=== PATIENT | male | born 1970 | race Caucasian/White ===

== ENCOUNTER 2017-04-04 10:51 | Emergency (ER) | payer OTHER ==
[2017-04-04] MEDS ORDERED: IBUPROFEN 600 MG TABLET PO STA (12:26)
[2017-04-04] MEDS ORDERED: ACETAMINOPHEN 325 MG TABLET PO STA (12:26)
[2017-04-04] MEDS ORDERED: ACETAMINOPHEN 325 MG TABLET PO ONE (12:36)
[2017-04-04] MEDS ORDERED: IBUPROFEN 600 MG TABLET PO ONE (12:37)
--- NOTE | 2017-04-04 12:52 | ED Physician Documentation ---
PD HPI UPPER EXT INJURY - Stated complaint Stated Complaint: R SHOULDER INJURY - Chief complaint Chief Complaint: Ext Problem - History obtained from History obtained from: Patient - History of Present Illness Location: Right, Shoulder Type of injury: Other (he was lifting and turning a heavy box at work and felt a pop and pain in right shoulder. Hurts for lifting overhead most.) Where injury occurred: Work ([employer] Timing - onset: Today Timing - details: Abrupt onset, Still present Improved by: Rest Worsened by: Moving. No: Palpating Associated symptoms: No: Weakness, Numbness, Tingling, Swelling Similar symptoms before: Has not had sx before Recently seen: Not recently seen Review of Systems Constitutional: denies: Fever, Chills Neurologic: denies: Focal weakness, Numbness PD PAST MEDICAL HISTORY - Past Medical History Past Medical History: No Musculoskeletal: None - Past Surgical History Past Surgical History: No - Present Medications Home Medications: Ambulatory Orders Medication Instructions Recorded Confirmed Naproxen [Naprosyn] 500 mg PO BID #20 tablet 04/04/17 Tramadol HCl 50 mg PO Q6H PRN #20 tablet 04/04/17 - Allergies Allergies/Adverse Reactions: Allergies Allergy/AdvReac Type Severity Reaction Status Date / Time No Known Drug Allergies Allergy Verified 04/04/17 10:57 - Social History Does the pt smoke?: No Smoking Status: Never smoker Does the pt drink ETOH?: Yes Does the pt have substance abuse?: No - Immunizations Immunizations are current?: Yes - POLST Patient has POLST: No PD ED PE NORMAL - Vitals Vital signs reviewed: Yes - General General: Alert and oriented X 3, No acute distress, Well developed/nourished - Neck Neck: Supple, no meningeal sign, No bony TTP - Derm Derm: Normal color, Warm and dry - Extremities Extremities: Other (right shoulder with tenderness anteriorly but not at AC. ROm limited by pain. No noted laxity on passive ROM. Hurts with rotator cuff movements, james abduction. ) Results - Vitals Vitals: Vital Signs - 24 hr 04/04/17 04/04/17 10:55 12:56 Temperature 36.8 C Heart Rate 88 73 Respiratory 16 20 Rate Blood Pressure 141/90 H 135/85 H O2 Saturation 98 97 Oxygen O2 Source Room air - Rads (name of study) shoulder Radiology: Prelim report reviewed, EMP read contemporaneously (no acute) PD MEDICAL DECISION MAKING - ED course Complexity details: reviewed results (xray okay), considered differential ( seems likely rotator cuff injury, strain vs partial tear. ), d/w patient Departure - Departure Disposition: 01 Home, Self Care Clinical Impression: Rotator cuff (capsule) sprain Qualifiers: Encounter type: initial encounter Laterality: right Qualified Code(s): S43.421A - Sprain of right rotator cuff capsule, initial encounter Right shoulder strain Qualifiers: Encounter type: initial encounter Qualified Code(s): S46.911A - Strain of unspecified muscle, fascia and tendon at shoulder and upper arm level, right arm , initial encounter Condition: Stable Record reviewed to determine appropriate education?: Yes Instructions: ED Sprain Shoulder Follow-Up: Nir Cooney MD [Provider Admit Priv/Credential] - Prescriptions: Naproxen [Naprosyn] 500 mg PO BID #20 tablet Tramadol HCl 50 mg PO Q6H PRN #20 tablet PRN Reason: Pain Comments: I think you have strained some of the muscles of the shoulder, which might include some of the rotator cuff. You can use a sling for the shoulder very limitedly for comfort but be sure to have good range of motion periodically through the day which can be small circles or using her other arm. You do not want to have the sling on consistently so that it does not get stiffen. We have discussed this. Otherwise some ice to the shoulder periodically. Naproxen twice daily for the next 10 days with food. Add Tylenol or tramadol if needed for pain. Follow-up with orthopedics and call today for an appointment for about a week from now. Limited lifting push pull and overhead reaching with the shoulder for a week. Forms: Activity restrictions Discharge Date/Time: 04/04/17 12:56
--- NOTE | 2017-04-04 13:00 | XRAY Preliminary Report ---
Exam: XR Shoulder 3 View RT IMPRESSION: Normal shoulder radiography. [facility] SITE ID: [id number]
--- NOTE | 2017-04-04 13:03 | XRAY Report ---
EXAM: RIGHT SHOULDER RADIOGRAPHY EXAM DATE: 04/04/2017 12:45 PM. CLINICAL HISTORY: Shoulder pain and pop with lifting at work today. COMPARISON: None. TECHNIQUE: 3 views. FINDINGS: Bones: Normal. No fracture or bone lesion. Joints: The glenohumeral and acromioclavicular joints are normal. Soft tissues: The visualized hemithorax is unremarkable. No soft tissue swelling. IMPRESSION: Normal shoulder radiography. [facility] Referring Provider Line: [phone] SITE ID: [id number]
[2017-04-04 13:06] VITALS: BP 135/85
== END 2017-04-04 12:56 | disposition home or self-care (01) ==
LOC: ED 10:51
DX: S43.421A Sprain of right rotator cuff capsule, initial encounter (principal); S46.811A Strain of other muscles, fascia and tendons at shoulder and upper arm level, right arm, initial encounter; X50.0XXA Overexertion from strenuous movement or load, initial encounter; Y92.89 Other specified places as the place of occurrence of the external cause; Y99.0 Civilian activity done for income or pay
CPT/HCPCS: 73030; 99283; A9270

== ENCOUNTER 2017-08-21 16:15 | Outpatient (CLI) | payer OTHER ==
--- NOTE | 2017-08-22 11:03 | MRI Report ---
EXAM: RIGHT SHOULDER MRI WITHOUT CONTRAST EXAM DATE: 08/21/2017 05:42 PM. CLINICAL HISTORY: Right shoulder pain 4 months. COMPARISON: 04/04/2017. TECHNIQUE: Multiplanar, multisequence T1-weighted and fluid-sensitive sequences of the shoulder witho ut contrast. Other: None. FINDINGS: Acromioclavicular Region: The acromion is type II. There is moderate acromioclavicular joint osteoart hritis. There is a trace of fluid in the subacromial bursa. Glenohumeral Region: No subluxation. No effusion or loose bodies. The articular cartilage is unremark able. Bone Marrow: There is a low T1, high T2 signal lesion with a lobulated contour and a narrow zone of t ransition in the head of the humerus, suggestive of an enchondroma. Labrum: The labrum is unremarkable on this nonarthrographic study. Musculature/Rotator Cuff: There is mildly increased T2 signal in the posterior fibers of supraspinatu s consistent with tendinosis. There is a 4 mm by 8 mm musculotendinous junction, humeral surface tear involving less than 50% of tendon thickness. Unremarkable. There is high-grade partial thickness tea ring of the deep and superficial fibers of subscapularis at its insertion, with near-complete rupture of the tendon. Biceps Tendon: There is a full-thickness tear of the long head of biceps tendon in the bicipital groo ve. A small number of retracted fibers are visible in the distal groove. Other: The subcutaneous tissues are unremarkable. IMPRESSION: 1. Moderate acromioclavicular joint osteoarthritis. 2. 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 3. Tendinosis and low-grade partial-thickness tearing of supraspinatus. 4. High-grade partial-thickness tear of subscapularis at its insertion. Complete rupture of the long head of biceps tendon with distal retraction. [facility] MUSCULOSKELETAL RADIOLOGY SECTION Referring Provider Line: [phone] SITE ID: [id number]
== END 2017-08-21 16:16 | disposition home or self-care (01) ==
LOC: DI 16:15
PROVIDERS: ATTEND Orthopaedic Surgery
DX: M19.011 Primary osteoarthritis, right shoulder (principal); D16.01 Benign neoplasm of scapula and long bones of right upper limb; M75.101 Unspecified rotator cuff tear or rupture of right shoulder, not specified as traumatic; S46.111D Strain of muscle, fascia and tendon of long head of biceps, right arm, subsequent encounter

== ENCOUNTER 2018-02-24 05:46 | Day surgery (SDC) | payer OTHER ==
[2018-02-24] MEDS ORDERED: ceFAZolin 2 GM/50 ML 2 GM/50 ML BAG IV ONE (06:36)
[2018-02-24] MEDS ORDERED: LACTATED RINGERS 1,000 ML IV ONE ×2 (06:43→09:10)
--- NOTE | 2018-02-24 06:54 | ANESTHESIA ---
Pre-Anesthesia VS, & Labs - Diagnosis Right rotator cuff tear, Right longhead of biceps tendon tear, Right AC joint impingement - Procedure Right Shoulder Arthroscopy, Right rotator cuff repair with biceps tenodesis, subacromial decompression Vital Signs: Temp Pulse Resp BP Pulse Ox 36.8 C 16 131/84 H 100 02/24/18 06:32 02/24/18 06:32 02/24/18 06:32 02/24/18 06:32 Height 5 ft 9 in Weight (kg) 86.2 kg Body Mass Index 27.3 - NPO >8 hours Home Medications and Allergies Home Medications: Ambulatory Orders Medication Instructions Recorded Confirmed No Known Home Medications [No 02/23/18 02/24/18 Known Home Medications] Allergies/Adverse Reactions: Allergies Allergy/AdvReac Type Severity Reaction Status Date / Time No Known Drug Allergies Allergy Verified 02/24/18 06:31 Anes History & Medical History - Anesthetic History Anesthesia Complications: reports: No previous complications Family history of Anesthesia Complications: Denies - Airway/Dental Mouth Opening: Greater than 4 Fingerbreadths Neck Mobility: Normal Mallampati classification: III Thyromental Distance: greater than 6 cm - Medical History Cardiovascular: reports: None Pulmonary: reports: Sleep apnea, CPAP use Gastrointestinal: reports: None Urinary: reports: None Musculoskeletal: reports: None Endocrine/Autoimmune: reports: None Skin: reports: None Smoking Status: Never smoker Exam General: Alert Respiratory: Lungs clear Cardiovascular: Regular rate Plan Anesthesia Type: General, Interscalene Block Consent for Procedure(s) Verified and Reviewed: Yes Code Status: Attempt Resuscitation ASA classification: 2-Mild systemic disease Is this case an emergency?: No
[2018-02-24] MEDS ORDERED: BUPIVACAINE 0.25% PF 30 ML VIAL ONE (07:29)
[2018-02-24] MEDS ORDERED: BUPIVACAINE 0.5% PF 30 ML VIAL ONE (07:29)
[2018-02-24] MEDS ORDERED: LIDOCAINE MPF 1%-EPI 1:200000 30 ML VIAL ONE (07:30)
[2018-02-24] MEDS ORDERED: PROPOFOL 200 MG/20 ML VIAL IVP ONE (08:44)
[2018-02-24] MEDS ORDERED: ROPIVACAINE 0.5% PF 20 ML AMPULE EP ONE (08:44)
[2018-02-24] MEDS ORDERED: KETOROLAC 30 MG/ML VIAL IVP ONE (08:44)
[2018-02-24] MEDS ORDERED: MIDAZOLAM 2 MG/2 ML VIAL IVP ONE (08:44)
[2018-02-24] MEDS ORDERED: fentaNYL 100 MCG/2 ML VIAL IVP ONE (08:44)
[2018-02-24] MEDS ORDERED: ROCURONIUM 50 MG/5 ML VIAL IVP ONE (08:44)
[2018-02-24] MEDS ORDERED: LIDOCAINE-MPF 2% 5 ML VIAL IM ONE (08:44)
[2018-02-24] MEDS ORDERED: ONDANSETRON 4 MG/2 ML VIAL IVP ONE (08:44)
[2018-02-24] MEDS ORDERED: DEXAMETHASONE 4 MG/ML VIAL IVP ONE (08:44)
[2018-02-24] MEDS ORDERED: oxyCOD/ACETAMIN 5 MG/325 MG TABLET PO ONE (10:07)
[2018-02-24 10:44] VITALS: BP 132/80
--- NOTE | 2018-02-24 12:46 | OPERATIVE REPORT ---
DATE OF SERVICE: 02/24/2018 Physician: Zoila Kim MD PREOPERATIVE DIAGNOSIS: Right shoulder impingement syndrome, possible rotator cuff tear and biceps t ear. POSTOPERATIVE DIAGNOSIS: Right shoulder impingement syndrome and chronic biceps tear. PROCEDURE PERFORMED: Right shoulder arthroscopy with subacromial decompression. SURGEON: Zoila Kim MD ANESTHESIA: General with interscalene block by Nubia Avelar CRNA. INDICATIONS FOR SURGERY: The patient is a 47-year-old male with chronic right shoulder pain, with ac gene and pain with overhead use. He has failed nonoperative treatment and desires surgical treatment of his shoulder, with the plan being arthroscopy of the shoulder, subacromial decompression, possibl e biceps tenodesis, and possible rotator cuff tear. FINDINGS AT SURGERY: Under anesthesia, the patient had a normal shoulder exam. He had full passive and active motion and no instability, and minimal sulcus displacement. Arthroscopic surgery, he had a tendency towards bleeding, but the inflammatory tissue was more involved in the subacromial space t asher in the shoulder joint itself. The shoulder was devoid of a biceps tendon, and the bicipital groo ve was empty. There was a small fraying on the underside of the rotator cuff, supraspinatus of no co nsequence. The cuff being otherwise entirely intact, glenohumeral ligaments intact labrum intact, an d the surface of the glenoid showing no significant articular wear. The subacromial space showed ext sinan tendency to bleeding with intact and inflamed bursal tissues, type 2 acromion, prominent CA liga ment, and intact bursal side rotator cuff. DESCRIPTION OF OPERATIVE PROCEDURE: The patient was taken to the operating room and was given a gene ral endotracheal anesthetic after having received an interscalene block. He was positioned on the OR table supine, and then placed up into a beach chair position, with the shoulder was sterilely preppe d and draped for adequate exposure for shoulder arthroscopy. The surgical timeout was held, after which portal sites were made, and the scope introduced into the glenohumeral joint from the posterior acromial portal. Very careful examination was made of the shou lder joint, especially tracing the pathway of the biceps tendon course, with the biceps not visible, and the bicipital groove empty. The structures were all documented to be intact in the shoulder. The scope was then withdrawn and placed in the subacromial, where there was dense bursal thickening a nd scarring, and a tendency towards bleeding. In this site, the radiofrequency wand was used to coag ulate tissues and to remove bursal tissue with the shaver and the wand, gaining a view of the CA liga ment and the underside of the acromion, where the bur was used to plane down to a type 1 acromion and the CA ligament was excised. The shoulder blade area was flushed and a good view was obtained at th e end, to examine the distal aspect of the clavicle at the AC joint, and there was no abnormality see n in the capsule, and this was left alone. The bursal side of rotator cuff was inspected and was int act. The scope was withdrawn. Portals were closed then with interrupted 3-0 nylon suture and sterile dres sings were applied. The patient was then taken to the recovery room in stable condition, where a sli ng was applied. ESTIMATED BLOOD LOSS: Minimal. COMPLICATIONS: None. COUNTS: Sponge and needle counts correct. TD: 02/24/2018 11:02
== END 2018-02-24 05:47 | disposition home or self-care (01) ==
LOC: SDS 05:46
PROVIDERS: ATTEND Orthopaedic Surgery
PROC: 0RBJ4ZZ Excision of Right Shoulder Joint, Percutaneous Endoscopic Approach (ICD-10-PCS; principal; 2018-02-24 07:30)
DX: M75.41 Impingement syndrome of right shoulder (principal); S46.211A Strain of muscle, fascia and tendon of other parts of biceps, right arm, initial encounter; G47.30 Sleep apnea, unspecified
CPT/HCPCS: 29822; A9270; J0690; J7120

== ENCOUNTER 2018-06-01 14:56 | Outpatient (CLI) | payer OTHER | END 2018-06-01 14:57 | disposition home or self-care (01) | LOC: SC 14:56 | PROVIDERS: ATTEND Internal Medicine Pulmonary Disease | DX: G47.33 Obstructive sleep apnea (adult) (pediatric) (principal) | CPT/HCPCS: 99203; 99212 ==

== ENCOUNTER 2019-07-05 11:22 | Outpatient (CLI) | payer OTHER ==
--- NOTE | 2019-07-05 12:14 | SLEEP CARE CONSULTATION ---
Information from patient questionnaire entered by Nubia Mccain. I have reviewed and concur with the information entered by Nubia Mccain. This document represents the service I personally performed and the decisions made by me, Neptali Newby MD, [facility]. History of Present Illness Previous diagnosis: Severe, Obstructive Sleep Apnea-Hypopnea Syndrome AHI: 43.4 Reason for follow up: annual (last seen 2018) Equipment type: CPAP Equipment obtained from: [employer] Mask style: Full face HPI additional information: HPI: Mr. Cruz returned today for annual follow up of nasal CPAP therapy. He was diagnosed to have severe obstructive sleep apnea-hypopnea syndrome. The patient wears a full face mask. He reports using the device part of the time. The compliance report shows usage in 137 nights out of the past 180 nights, averaging 3.5 hours a night. He reports not putting the mask back on after going to the bathroom in the middle of the night. He also thinks that it is too small. He complained of no particular problem with the device such as soreness on the face, dry nose, epistaxis, nasal congestion or headache. He thinks that the pressure of 5- 8 cmH2O is comfortable. If he uses the CPAP all night, he notices improvement in his sleep quality, and that he wakes up feeling fresher in the morning and more awake/alert during the day. His notices no snore at all. The average residual AHI is 2.3; and air leak, 14.6 L/min. The 90th percentile pressure is 7.5 cmH2O. CPAP Compliance Data - Data Reviewed with Patient Average duration of nightly device use: 3.5 Compliance rate %: 31 (180 days)(43 for last 30) Current pressure setting (cmH2O): 5-8 Humidity settin Average residual AHI: 2.3 Subjective Patient concerns: reports: mask discomfort (believe i need next size up), air blowing in eyes, dry mouth, nose, throat (not often) Initial [place] Sleepiness Scale score: 8 Current [place] Sleepiness Scale score: 8 Allergies and Home Medications Drug allergies reviewed: Yes Home medication list reviewed: Yes Review of Systems Review of systems same as previous: Yes Physical Exam Weight: 190 lb Impression and Plan IMPRESSION: 1. Obstructive Sleep Apnea-Hypopnea Syndrome, severe, with the patient doing fairly well on nasal CPAP therapy. He has [id number] compliance but significant clinical improvement. The current pressure appears effective and comfortable. Overall, he is very satisfied with treatment and plans to continue with it long-term. No adjustment is necessary today. PLAN: 1. Continue with autoCPAP set at 5 - 8 cmH2O. 2. Try to lose some weight 3. Try [employer]Med AirTouch F-20 full face mask and Respironics DreamWear full face mask. Prescription faxed to [facility]. 4. Return in one year for follow up or earlier if there is any problem with the treatment. I spent 100% of this 20 minute visit face to face with the patient with greater than 50% of this was spent time counseling the patient and coordination of care.
== END 2019-07-05 11:23 | disposition home or self-care (01) ==
LOC: SC 11:22
PROVIDERS: ATTEND Internal Medicine Pulmonary Disease
DX: G47.33 Obstructive sleep apnea (adult) (pediatric) (principal)
CPT/HCPCS: 99212; 99213

== ENCOUNTER 2020-07-20 14:23 | Outpatient (CLI) | payer OTHER ==
--- NOTE | 2020-07-19 15:02 | SLEEP CARE CONSULTATION ---
Information from patient questionnaire entered by Nubia Mccain. I have reviewed and concur with the information entered by Nubia Mccain. This document represents the service I personally performed and the decisions made by me, Joleen Golden, RN, MSN, [employer]. History of Present Illness Service Date and Time: 07/19/2020 1430 Previous diagnosis: Severe, Obstructive Sleep Apnea-Hypopnea Syndrome AHI: 43.4 (in 2017) Reason for follow up: annual (last seen 06/2019) Equipment type: CPAP Equipment obtained from: [employer] Mask style: Full face Prior sleep studies: Yes Year and Where: 2017 [facility] Sleep Lab Type of Sleep Study: Polysomnography CPAP Compliance Data - Data Reviewed with Patient Average duration of nightly device use: 1 hr 50 min Compliance rate %: 7 (180 days) Current pressure setting (cmH2O): 5-8 Humidity settin Average residual AHI: 4.7 Subjective Initial [place] Sleepiness Scale score: 8 Physical Exam Height: 5 ft 9 in Impression and Plan 1. Patient scheduled for a telehealth video visit per [facility]. The connection was erratic despite recalling twice. He does not have internet connection at this time only phone data available. He requested to reschedule for an in office visit and I notified my office staff. Visit Type: Telehealth Video Video Type: [facility] Patient Location: Home Location of Provider: Home Patient agrees and consents to this telehealth visit type: Yes Patient agrees to have their insurance billed: Yes Time Spent with Patient (minutes): 5-10 minutes all spent in trying to establish good connection Provider Statement: I spent 100% of the Telehealth Video Call with the patient with greater than 50% spent counseling the patient and coordination of care.
--- NOTE | 2020-07-20 14:56 | SLEEP CARE CONSULTATION ---
Information from patient questionnaire entered by Frederick Lopez. I have reviewed and concur with the information entered by Frederick Lopez. This document represents the service I personally performed and the decisions made by , Leeanne Wooten ARNP. History of Present Illness Service Date and Time: 07/20/2020 1423 Previous diagnosis: Severe, Obstructive Sleep Apnea-Hypopnea Syndrome AHI: 43.4 (in 2017) Reason for follow up: annual (Last seen 06/2019) Equipment type: CPAP Equipment obtained from: [employer] (getting supplies as needed) Mask style: Full face Backup mask available: Yes (other mask) Last cushion change: 2 weeks Prior sleep studies: Yes Year and Where: 2017 [facility] Sleep Lab Type of Sleep Study: Polysomnography HPI additional information: BARRETT SÁNCHEZ was diagnosed to have severe, AHI 43.4, obstructive sleep apnea- hypopnea syndrome and returned today for CPAP therapy annual follow-up. CPAP Compliance Data - Data Reviewed with Patient Average duration of nightly device use: 1 h 50 min Compliance rate %: 7 Current pressure setting (cmH2O): 5-8 Average residual AHI: 4.7 Central apnea: 0.0 Obstructive apnea: 0.7 Subjective Missed days of use due to: reports: mask issues (had some problems using other mask, no comfort), illness (severe heartburn), other (going to sleep late) Patient concerns: denies: aerophagia, mask discomfort, air blowing in eyes, mask leak noise, condensation in mask/hose, nasal congestion, dry mouth, nose, throat, epistaxis, other Observed to snore while using device: No Current pressure setting perceived as: comfortable On therapy, patient: reports: sleeping better, awakening more refreshed, being more awake and alert during the day, more rested overall. denies: drowsiness while driving Initial [place] Sleepiness Scale score: 8 (in 2018) Current [place] Sleepiness Scale score: 9 Allergies and Home Medications Drug allergies reviewed: Yes (NKDA) Home medication list reviewed: Yes (new med for heartburn) Review of Systems Review of systems same as previous: Yes (NKDA) Physical Exam Heart Rate: 78 O2 Saturation: 98 Height: 5 ft 9 in Weight: 199 lb Body Mass Index: 29.3 BMI Classification: Overweight Impression and Plan 1. Obstructive Sleep Apnea-Hypopnea Syndrome, severe, with poor treatment compliance and good apnea control. On CPAP therapy, the patient has better sleep quality and is more rested overall. He has had some issues with severe heartburn for which he was recently started on medication. He feels the heartburn is improving and he has been trying to wear his CPAP mask more. His current compliance is at 7%. I reviewed with his compliance needs for insurance purposes and he voiced understanding. I will have him follow up here in 2 months to recheck compliance. He has a tube that may be defective and I advised him to call his DME supplier to get a replacement tube. He voiced understanding. Patient's apnea severity and rationale for treatment to reduce apnea, improve sleep quality and reduce cardiovascular and cerebrovascular events was reviewed. * Continue auto CPAP pressure at 5-8 cmH2O * Notify me if snoring with mask or feeling that the pressure is too much or too little * Attempt to lose weight * Call this office if any problems using CPAP * Return for follow up in 2 months, or sooner if concerns arise Counseling Topics: Spare mask Visit Type: In Office Time Spent with Patient (minutes): 18 Provider Statement: I spent 100% of the Face to Face Visit with the patient with greater than 50% spent counseling the patient and coordination of care.
== END 2020-07-20 14:24 | disposition home or self-care (01) ==
LOC: SC 14:23
PROVIDERS: ATTEND Nurse Practitioner Family
DX: G47.33 Obstructive sleep apnea (adult) (pediatric) (principal); E66.3 Overweight; Z68.29 Body mass index [BMI] 29.0-29.9, adult
CPT/HCPCS: 99212; 99213

== ENCOUNTER 2020-09-20 12:41 | Outpatient (CLI) | payer OTHER ==
--- NOTE | 2020-09-20 13:22 | SLEEP CARE CONSULTATION ---
Information from patient questionnaire entered by Nubia Mccain. I have reviewed and concur with the information entered by Nubia Mccain. This document represents the service I personally performed and the decisions made by , Leeanne Wooten ARNP. History of Present Illness Service Date and Time: 09/20/2020 1241 Previous diagnosis: Severe, Obstructive Sleep Apnea-Hypopnea Syndrome AHI: 43.4 (in 2017) Reason for follow up: other (2 month) Equipment type: CPAP Equipment obtained from: [employer] (getting supplies) Mask style: Full face Mask brand: Respironics Backup mask available: Yes (other mask) Last cushion change: 1 month Prior sleep studies: Yes Year and Where: [address] [place] [address] Sleep Lab Type of Sleep Study: Polysomnography HPI additional information: BARRETT SÁNCHEZ was diagnosed to have severe, AHI 43.4, obstructive sleep apnea- hypopnea syndrome and returned today for CPAP therapy two month compliance follow-up. CPAP Compliance Data - Data Reviewed with Patient Average duration of nightly device use: 4 hr 13 min Compliance rate %: 50 (60 days) Current pressure setting (cmH2O): 5-8 Humidity settin Average residual AHI: 4.3 Central apnea: 0.1 Obstructive apnea: 0.5 Subjective Missed days of use due to: reports: mask issues, other (colonoscopy, heartburn) Patient concerns: reports: mask discomfort (due to over tightening of headgear; now doing better), mask leak noise (placed a piece of tape over tube that fits into top of headgear). denies: aerophagia, air blowing in eyes, condensation in mask/hose, nasal congestion, dry mouth, nose, throat, epistaxis, other Observed to snore while using device: No Current pressure setting perceived as: comfortable On therapy, patient: reports: sleeping better, awakening more refreshed, being more awake and alert during the day, more rested overall. denies: drowsiness while driving Initial [place] Sleepiness Scale score: 8 (in 2018) Current [place] Sleepiness Scale score: 5 Allergies and Home Medications Drug allergies reviewed: Yes (NKDA) Home medication list reviewed: Yes (no new medications) Review of Systems Review of systems same as previous: No (colonoscopy, heartburn) Physical Exam Heart Rate: 81 O2 Saturation: 96 Height: 5 ft 9 in Weight: 199 lb Body Mass Index: 29.3 BMI Classification: Overweight Impression and Plan 1. Obstructive Sleep Apnea-Hypopnea Syndrome, severe, with poor treatment compliance and fair apnea control. On CPAP therapy, the patient has better sleep quality and is more rested overall. He had some issues with the mask making leaking noises and fit issues. He put some tape around on part going into the top of headgear and this has resolved the loud leaking noises. He was over- tightening the headgear and then it was too loose causing issues with keeping the mask on. He has figured out how to keep the mask snug but not too tight and feels it is less uncomfortable. He has been able to use the CPAP more with the mask fitting better but I reinforced with patient that he needs to increase days that are 4 hours or more of use. He voiced understanding. He feels the pressure is comfortable at current setting and his AHI is under 5. We will keep his pressure at current setting for now. I advised patient that increasing time in the mask will give him better benefit of the treatment. He voiced understanding and agreement with plan. Patient's apnea severity and rationale for treatment to reduce apnea, improve sleep quality and reduce cardiovascular and cerebrovascula r events was reviewed. * Continue auto CPAP pressure at 5-8 cmH2O * Notify me if snoring with mask or feeling that the pressure is too much or too little * Attempt to lose weight * Call this office if any problems using CPAP * Return for follow up in 1 month to recheck compliance, or sooner if concerns arise Counseling Topics: Spare mask, Weight loss health impact Visit Type: In Office Time Spent with Patient (minutes): 24 Provider Statement: I spent 100% of the Face to Face Visit with the patient with greater than 50% spent counseling the patient and coordination of care.
== END 2020-09-20 12:42 | disposition home or self-care (01) ==
LOC: SC 12:41
PROVIDERS: ATTEND Nurse Practitioner Family
DX: G47.33 Obstructive sleep apnea (adult) (pediatric) (principal); E66.3 Overweight; Z68.29 Body mass index [BMI] 29.0-29.9, adult
CPT/HCPCS: 99212; 99213

== ENCOUNTER 2020-10-20 12:46 | Outpatient (CLI) | payer OTHER ==
--- NOTE | 2020-10-20 13:37 | SLEEP CARE CONSULTATION ---
Information from patient questionnaire entered by Frederick Lopez. I have reviewed and concur with the information entered by Frederick Lpoez. This document represents the service I personally performed and the decisions made by me, Leeanne Wooten ARNP. History of Present Illness Service Date and Time: 10/20/2020 1246 Previous diagnosis: Severe, Obstructive Sleep Apnea-Hypopnea Syndrome AHI: 43.4 (in 2017) Reason for follow up: one month Equipment type: CPAP Equipment obtained from: [employer] (getting supplies as needed) Mask style: Full face Backup mask available: Yes (old mask) Last cushion change: last week Prior sleep studies: Yes Year and Where: 2017 [facility] Sleep Lab Type of Sleep Study: Polysomnography HPI additional information: BARRETT SÁNCHEZ was diagnosed to have severe, AHI 43.4, obstructive sleep apnea- hypopnea syndrome and returned today for CPAP therapy one month follow-up. CPAP Compliance Data - Data Reviewed with Patient Average duration of nightly device use: 6 h 6 min Compliance rate %: 80 Current pressure setting (cmH2O): 5-8 Average residual AHI: 6.9 Subjective Patient concerns: reports: mask leak noise (only a little). denies: aerophagia, mask discomfort, air blowing in eyes, condensation in mask/hose, nasal congestion, dry mouth, nose, throat, epistaxis, other Observed to snore while using device: No Current pressure setting perceived as: comfortable On therapy, patient: reports: sleeping better, awakening more refreshed, being more awake and alert during the day, more rested overall. denies: drowsiness while driving Initial [place] Sleepiness Scale score: 8 (in 2018) Current [place] Sleepiness Scale score: 5 Allergies and Home Medications Home medication list reviewed: Yes (no changes) Review of Systems Review of systems same as previous: Yes (no changes) Physical Exam Heart Rate: 69 O2 Saturation: 98 Height: 5 ft 9 in Weight: 197 lb Body Mass Index: 29.0 BMI Classification: Overweight Impression and Plan 1. Obstructive Sleep Apnea-Hypopnea Syndrome, severe, with good treatment compli ance and fair apnea control with mild elevation of residual AHI. On CPAP therapy, the patient has better sleep quality and is more rested overall. He needs to replace his hose because it has a hole in it and was leaking. He has it taped. He was advised to contact his DME for another hose. He voiced understanding. He has a few mask leaks but nothing significant. He likes the current pressure setting and has significant improvement of his sleep apnea. His [place] initially was 8/24 and is 5/24 upon measurement today. I will not adjust his pressures today. Patient's apnea severity and rationale for treatment to reduce apnea, improve sleep quality and reduce cardiovascular and cerebrovascular events was reviewed. * Continue autoCPAP pressure at 5-8 cmH2O * Notify me if snoring with mask or feeling that the pressure is too much or too little * Attempt to lose weight * Call this office if any problems using CPAP * Return for follow up in 1 year, or sooner if concerns arise Counseling Topics: Spare mask, Weight loss health impact Visit Type: In Office Time Spent with Patient (minutes): 14 Provider Statement: I spent 100% of the Face to Face Visit with the patient with greater than 50% spent counseling the patient and coordination of care.
--- OUTSIDE RECORDS SUMMARY | 2020-10-25 01:57 | EXTERNAL MEDICAL SUMMARY RPT | Continuity of Care Document ---
:1970 Demographics Phone Unavailable Preferred Language Hungarian Marital Status Unknown Tenriism Affiliation Unknown Race Unknown Ethnic Group Unknown Author Organization [place] Address [address] [phone] Phone Care Team Providers Name Role Phone Brennan Unavailable Unavailable Procedures date description facility [id number] [facility] Vital Signs date measurement value source 20200914 BMI 29.3 kg/m2 20200914 BP_diastolic 74 mm[Hg] 20200914 BP_systolic 143 mm[Hg] 20200914 heart_rate 78 /min 20200914 height_metric 175.26 cm [id number] height_standard 69 in [id number] respiration_rate 20 /min 20200914 temperature_metric 37.28 C [id number] temperature_standard 99.1 F 20200914 weight_metric 90.26 kg 20200914 weight_standard 198.99 lb Social History date description facility [id number]
== END 2020-10-20 12:47 | disposition home or self-care (01) ==
LOC: SC 12:46
PROVIDERS: ATTEND Nurse Practitioner Family
DX: G47.33 Obstructive sleep apnea (adult) (pediatric) (principal); E66.3 Overweight; Z68.29 Body mass index [BMI] 29.0-29.9, adult
CPT/HCPCS: 99212

== ENCOUNTER 2021-12-18 08:00 | Outpatient (CLI) | payer OTHER ==
--- NOTE | 2021-12-19 09:00 | XRAY Report ---
PROCEDURE: Finger(s) RT INDICATIONS: R THUMB PX TECHNIQUE: AP hand, 2 views of the right first finger(s) acquired. COMPARISON: None FINDINGS: Bones: No fractures or dislocations. No suspicious bony lesions. Soft tissues: Soft tissue swelling along the dorsal aspect over the first IP joint without underlyi ng foreign body or calcifications. Minor dystrophic calcifications around the first metacarpal head. IMPRESSION: 1. Soft tissue swelling over the first IP joint without underlying fracture, calcification, or foreig n body. Reviewed by: Jeri Herrera MD on 12/19/2021 8:59 AM PDT Approved by: Jeri eHrrera MD on 12/19/2021 8:59 AM PDT Station ID: [id number]
== END 2021-12-18 23:59 | disposition home or self-care (01) ==
LOC: DI.N 08:00
PROVIDERS: ATTEND Registered Nurse
DX: M79.644 Pain in right finger(s) (principal); M79.9 Soft tissue disorder, unspecified

== ENCOUNTER 2021-12-19 12:42 | Outpatient (CLI) | payer OTHER ==
[2021-12-19 13:41] VITALS: BP 141/95
--- NOTE | 2021-12-19 13:41 | SLEEP CARE CONSULTATION ---
Information from patient questionnaire entered by Yoana Stovall MA. I have reviewed and concur with the information entered by Yoana Stovall MA. This document represents the service I personally performed and the decisions made by , Leeanne Wooten ARNP. History of Present Illness Service Date and Time: 12/19/2021 1242 Previous diagnosis: Severe, Obstructive Sleep Apnea-Hypopnea Syndrome AHI: 43.4 (in 2017) Reason for follow up: annual (LAST SEEN 10/20/20, [facility] 03/18/17 [facility] FEB , RESMED, ) Equipment type: CPAP Equipment obtained from: [employer] (getting supplies as needed) Mask style: Full face (hybrid) Backup mask available: Yes (old mask) Last cushion change: 1 month Prior sleep studies: Yes Year and Where: [address] [place] [address] Sleep Lab Type of Sleep Study: Polysomnography HPI additional information: BARRETT SÁNCHEZ was diagnosed to have severe, AHI 43.4, obstructive sleep apnea- hypopnea syndrome and returned today for CPAP therapy annual follow-up. Sleep Study - Results Type of Sleep Study: Polysomnography Prior sleep studies: Yes Year and Where: [address] [place] [address] Sleep Lab CPAP Compliance Data - Data Reviewed with Patient Average duration of nightly device use: 1 HOUR 49 MINUTES Compliance rate %: 7 (30 days; ) Current pressure setting (cmH2O): 5-8 Average residual AHI: 5.1 Central apnea: .0 Obstructive apnea: .0 Hypopnea: 1.7 Average large leak: 66.8 Subjective Missed days of use due to: reports: mask issues (air leaking and keeping him awake on top of headgear where hose connects to headgear), illness (hurt right thumb over weekend), other (HOSE HAS A HOLE) Patient concerns: reports: air blowing in eyes, mask leak noise, other (air loss in hose). denies: aerophagia, mask discomfort, condensation in mask/hose, nasal congestion, dry mouth, nose, throat, epistaxis Observed to snore while using device: Yes (a little bit) Current pressure setting perceived as: comfortable On therapy, patient: reports: sleeping better, awakening more refreshed, being more awake and alert during the day, more rested overall. denies: drowsiness while driving Initial [place] Sleepiness Scale score: 8 (in 2018) Current [place] Sleepiness Scale score: 7 (11/2021) Allergies and Home Medications Home medication list reviewed: Yes (antibiotics) Allergy and home medication list: Allergies No Known Drug Allergies Allergy (Verified 02/24/18 06:31) Review of Systems Review of systems same as previous: No (right thumb pain and swelling; no known injury) Physical Exam Vital signs obtained and entered by: DIANELYS MONTERO Blood Pressure: 141/95 (LEFT, RESP 20, PULSE 80, ) Cuff size: wrist Heart Rate: 86 O2 Saturation: 97 Height: 5 ft 9 in Weight: 195 lb Body Mass Index: 28.8 BMI Classification: Overweight Impression and Plan 1. Obstructive Sleep Apnea-Hypopnea Syndrome, severe, with poor treatment compliance and fair apnea control. On CPAP therapy, the patient has better sleep quality and is more rested overall. Patient has been having a lot of problems with being able to wear his mask due to the air leaking through the hose on the top of the headgear. He did replace the air hose once but the 1 he replaced it with is now leaking the same. I was able to find a spare ResMed air sense 10 heated hose to see if this will have less problems. The hose he has been using has been a regular unheated hose. Patient's apnea severity and rationale for treatment to reduce apnea, improve sleep quality and reduce cardiovascular and cerebrovascular events was reviewed. * Continue auto CPAP pressure at 5-8 cmH2O * Gave patient heated hose for his ResMed Airsense 10 to use * Notify me if snoring with mask or feeling that the pressure is too much or too little * Attempt to lose weight * Call this office if any problems using CPAP * Return for follow up in 1-2 months, or sooner if concerns arise Counseling Topics: Spare mask, Weight loss health impact Visit Type: In Office Time Spent with Patient (minutes): 24 Provider Statement: I spent 100% of the Face to Face Visit with the patient with greater than 50% spent counseling the patient and coordination of care.
== END 2021-12-19 12:43 | disposition home or self-care (01) ==
LOC: SC 12:42
PROVIDERS: ATTEND Nurse Practitioner Family
DX: G47.33 Obstructive sleep apnea (adult) (pediatric) (principal); E66.3 Overweight; Z68.28 Body mass index [BMI] 28.0-28.9, adult
CPT/HCPCS: 99212; 99213

== ENCOUNTER 2022-05-24 13:36 | Outpatient (CLI) | payer OTHER ==
--- NOTE | 2022-05-24 14:38 | XRAY Report ---
PROCEDURE: Knee 3 View LT INDICATIONS: L KNEE PX TECHNIQUE: 3 views of the left knee(s) were acquired. COMPARISON: None. FINDINGS: Bones: No fractures or dislocations. No suspicious bony lesions. Moderate medial compartment narro wing. No erosions or periarticular osteophytes. Soft tissues: Mild joint effusion. No suspicious soft tissue calcifications. IMPRESSION: Early arthritic change most notable in the medial compartment. Reviewed by: Clarissa Paz MD on 05/24/2022 2:36 PM PDT Approved by: Clarissa Paz MD on 05/24/2022 2:36 PM PDT Station ID: [id number]
== END 2022-05-24 13:37 | disposition home or self-care (01) ==
LOC: DI 13:36
PROVIDERS: ATTEND Registered Nurse
DX: M17.12 Unilateral primary osteoarthritis, left knee (principal)

== ENCOUNTER 2022-08-20 14:59 | Outpatient (CLI) | payer OTHER ==
[2022-08-20 15:33] VITALS: BP 126/78
--- NOTE | 2022-08-20 15:33 | SLEEP CARE CONSULTATION ---
Information from patient questionnaire entered by Marie Antunez. I have reviewed and concur with the information entered by Marie Antunez. This document represents the service I personally performed and the decisions made by me, Leeanne Wooten ARNP. History of Present Illness Service Date and Time: 08/20/2022 1459 Previous diagnosis: Severe, Obstructive Sleep Apnea-Hypopnea Syndrome AHI: 43.4 (in 2016) Reason for follow up: three month (F/U) Equipment type: CPAP (RESMED Airsense 10 s/u 02/2017; SD CARD NEEDED FOR DOWNLOAD AND CHANGES) Equipment obtained from: [employer] (getting supplies as needed) Mask style: Full face (hybrid) Mask brand: [employer] (Fidelina view) Backup mask available: Yes (old mask) Last cushion change: less than a month Prior sleep studies: Yes Year and Where: [facility] Sleep Lab Type of Sleep Study: Polysomnography HPI additional information: BARRETT SÁNCHEZ was diagnosed to have severe, AHI 43.4, obstructive sleep apnea- hypopnea syndrome and returned today for CPAP therapy three month with pressure change follow-up. Sleep Study - Results Type of Sleep Study: Polysomnography Prior sleep studies: Yes Year and Where: [facility] Sleep Lab CPAP Compliance Data - Data Reviewed with Patient Average duration of nightly device use: 2 hours 32 minutes Compliance rate %: 17 (79/90 days used; 33% in last 30 days) Current pressure setting (cmH2O): 8.6-10 Average residual AHI: 3.0 Central apnea: 0.0 Obstructive apnea: 0.9 Average large leak: 23.4 lpm Subjective Missed days of use due to: reports: other (heartburn or taking off mask early in morning) Patient concerns: reports: mask leak noise (sometimes from connection at top of headgear), dry mouth, nose, throat. denies: aerophagia, mask discomfort, air blowing in eyes, condensation in mask/hose, nasal congestion, epistaxis Observed to snore while using device: No Current pressure setting perceived as: comfortable On therapy, patient: reports: sleeping better, awakening more refreshed. denies: drowsiness while driving Initial [place] Sleepiness Scale score: 8 (in 2018) Current [place] Sleepiness Scale score: 5 (08/20/22) Allergies and Home Medications Drug allergies reviewed: Yes (NKDA) Home medication list reviewed: Yes (no changes) Review of Systems Review of systems same as previous: Yes (no changes) Physical Exam Vital signs obtained and entered by: MARIE Sam MA Blood Pressure: 126/78 (LEFT ARM) Cuff size: regular Heart Rate: 73 O2 Saturation: 97 Height: 5 ft 9 in Weight: 199 lb 6.4 oz Body Mass Index: 29.4 BMI Classification: Overweight Impression and Plan 1. Obstructive Sleep Apnea-Hypopnea Syndrome, severe, with poor treatment compliance and good apnea control. On CPAP therapy, the patient has better sleep quality and is more rested overall. He has been putting his mask on but will wake up and not replace on his face about 2-2.5 hours into his night. He also does get some mask leak noises but thinks this is from the top of the mask. He gets a dry mouth often but thinks he just needs to drink more water. I reviewed with him that oral dryness can be reduced by adjusting humidity setting higher or heated hose lower or by adjusting both settings. Verbal instructions given on how to change humidity and heated hose settings with rationale explaining why to change. Patient advised that chronic oral dryness can affect dental health and advised to follow up with dentist. Patient to discuss best option with dentist. He was also advised to try to replace mask and wait for graduating/lengthening periods of time to increase tolerance of wearing mask longer through the night. He voiced understanding. Patient's apnea severity and rationale for treatment to reduce apnea, improve sleep quality and reduce cardiovascular and cerebrovascular events was reviewed. I will follow up with him in 3 months to recheck compliance. 2. Overweight, unspecified. Currently patients BMI is 29.4. Obesity increases the risk of apnea, CPAP pressure requirements and overall health risks especially cardiovascular and diabetes. Thus patient is advised to lose weight. * Continue auto CPAP pressure at 8.6-10 cmH2O * Replace mask when returning to sleep during the night after a wake up * Notify me if snoring with mask or feeling that the pressure is too much or too little * Attempt to lose weight * Call this office if any problems using CPAP * Return for follow up in 3 months, or sooner if concerns arise Counseling Topics: Spare mask, Weight loss health impact Visit Type: In Office Time Spent with Patient (minutes): 21 Provider Statement: I spent 100% of the Face to Face Visit with the patient with greater than 50% spent counseling the patient and coordination of care.
== END 2022-08-20 15:00 | disposition home or self-care (01) ==
LOC: SC 14:59
PROVIDERS: ATTEND Nurse Practitioner Family
DX: G47.33 Obstructive sleep apnea (adult) (pediatric) (principal); E66.3 Overweight; Z68.29 Body mass index [BMI] 29.0-29.9, adult
CPT/HCPCS: 99212; 99213

== ENCOUNTER 2023-01-03 15:00 | Outpatient (CLI) | payer OTHER ==
--- NOTE | 2023-01-03 15:28 | SLEEP CARE CONSULTATION ---
Information from patient questionnaire entered by Marie Antunez. I have reviewed and concur with the information entered by Marie Antunez. This document represents the service I personally performed and the decisions made by , Leeanne Wooten ARNP. History of Present Illness Service Date and Time: 01/03/2023 1500 Previous diagnosis: Severe, Obstructive Sleep Apnea-Hypopnea Syndrome AHI: 43.4 (in 2017) Reason for follow up: other (5 MONTH F/U) Equipment type: CPAP (RESMED Airsense 10 s/u 02/2017; [place] CARD NEEDED FOR DOWNLOAD AND CHANGES) Equipment obtained from: [employer] (getting supplies as needed) Mask style: Full face (hybrid) Backup mask available: Yes (old mask) Last cushion change: 1 month Prior sleep studies: Yes Year and Where: [facility] Sleep Lab Type of Sleep Study: Polysomnography HPI additional information: BARRETT SÁNCHEZ was diagnosed to have severe, AHI 43.4, obstructive sleep apnea- hypopnea syndrome and returned today for CPAP therapy five month follow-up. Sleep Study - Results Type of Sleep Study: Polysomnography Prior sleep studies: Yes Year and Where: [facility] Sleep Lab CPAP Compliance Data - Data Reviewed with Patient Average duration of nightly device use: 3 hours 7 minutes Compliance rate %: 19 (79/90 days used) Current pressure setting (cmH2O): 8.6-10 Average residual AHI: 3 Central apnea: 0.1 Obstructive apnea: 1.3 Average large leak: 14.2 lpm Subjective Missed days of use due to: reports: other (taking mask off when waking up in the night) Patient concerns: denies: aerophagia, mask discomfort, air blowing in eyes, mask leak noise, condensation in mask/hose, nasal congestion, dry mouth, nose, throat, epistaxis Observed to snore while using device: No Current pressure setting perceived as: comfortable On therapy, patient: reports: sleeping better, awakening more refreshed, being more awake and alert during the day, more rested overall. denies: drowsiness while driving Initial [place] Sleepiness Scale score: 8 (in 2018) Current [place] Sleepiness Scale score: 5 Allergies and Home Medications Known drug allergies: No Drug allergies reviewed: Yes Home medication list reviewed: Yes (no changes) Allergy and home medication list: Allergies No Known Drug Allergies Allergy (Verified 01/02/23 20:28) Review of Systems Review of systems same as previous: Yes (no changes) Physical Exam Vital signs obtained and entered by: Leeanne Dunbar NP Blood Pressure: 130/93 Cuff size: wrist (left) Heart Rate: 77 O2 Saturation: 98 Height: 5 ft 9 in Weight: 198 lb Body Mass Index: 29.2 BMI Classification: Overweight Impression and Plan 1. Obstructive Sleep Apnea-Hypopnea Syndrome, severe, with poor treatment compliance and good apnea control. On CPAP therapy, the patient has better sleep quality and is more rested overall. He is committed to using his CPAP but has been having struggles with the mask. Patient has been putting on his mask regularly but he will take it off when he wakes up after 3 to 4 hours when he is half awake. I advised him to try to leave the mask on or replace if he finds it off during the night to try and increase his compliance. Compliance guidelines reviewed for insurance coverage. Patient was counseled on the difference between meeting compliance and optimal use of CPAP. Optimal use of CPAP is use of CPAP with all sleep to obtain maximum benefit of treatment. Patient is encouraged to use CPAP with all sleep. Patient's apnea severity and rationale for treatment to reduce apnea, improve sleep quality and reduce cardiovascular and cerebrovascular events was reviewed. 2. Overweight, unspecified. Currently patients BMI is 29.2. Obesity increases the risk of apnea, CPAP pressure requirements and overall health risks especially cardiovascular and diabetes. Thus patient is advised to lose weight. * Continue auto CPAP pressure at 8.6-10 cmH2O * Notify me if snoring with mask or feeling that the pressure is too much or too little * Attempt to lose weight * Call this office if any problems using CPAP * Return for follow up in 3 months, or sooner if concerns arise Counseling Topics: Spare mask, Weight loss health impact Visit Type: In Office Time Spent with Patient (minutes): 20 Provider Statement: I spent 100% of the Face to Face Visit with the patient with greater than 50% spent counseling the patient and coordination of care.
[2023-01-03 15:29] VITALS: BP 130/93
== END 2023-01-03 15:01 | disposition home or self-care (01) ==
LOC: SC 15:00
PROVIDERS: ATTEND Nurse Practitioner Family
DX: G47.33 Obstructive sleep apnea (adult) (pediatric) (principal); E66.3 Overweight; Z68.29 Body mass index [BMI] 29.0-29.9, adult
CPT/HCPCS: 99212; 99213

== ENCOUNTER 2023-04-04 14:52 | Outpatient (CLI) | payer OTHER ==
--- NOTE | 2023-04-04 15:42 | Sleep Patient Instructions ---
Sleep Center Visit Summary - Patient Visit Information Reason for Visit: 3-month follow-up for PAP therapy - Patient Instructions Additional Instructions: You were here for follow up of CPAP therapy. You will be continued on CPAP therapy with pressure at 8.6-10 cmH2O. Please work on increasing time in the mask to increase compliance. You should follow up with sleep care in 3 months. You may contact us sooner for any questions or concerns. - Clinic Information Contact: [facility] [address] [place] [address] [email or web address] T: [phone]
--- NOTE | 2023-04-04 15:49 | SLEEP CARE CONSULTATION ---
Information from patient questionnaire entered by Lowell Antunez. I have reviewed and concur with the information entered by Lowell Antunez. This document represents the service I personally performed and the decisions made by me, Leeanne Wooten ARNP. History of Present Illness Service Date and Time: 04/04/2023 145 Previous diagnosis: Severe, Obstructive Sleep Apnea-Hypopnea Syndrome AHI: 43.4 (in 2017) Reason for follow up: three month (F/U) Equipment type: CPAP (RESMED Airsense 10 s/u 02/2017; SD CARD NEEDED FOR DOWNLOAD AND CHANGES) Equipment obtained from: [employer] (getting supplies as needed) Mask style: Full face (hybrid) Backup mask available: Yes (old mask) Last cushion change: 1 month Prior sleep studies: Yes Year and Where: [facility] Type of Sleep Study: Polysomnography HPI additional information: BARRETT SÁNCHEZ was diagnosed to have severe, AHI 43.4, obstructive sleep apnea- hypopnea syndrome and returned today for CPAP therapy three month follow-up. Sleep Study - Results Type of Sleep Study: Polysomnography Prior sleep studies: Yes Year and Where: [facility] CPAP Compliance Data - Data Reviewed with Patient Average duration of nightly device use: 2 hours 45 minutes Compliance rate %: 20 (84/90 days used) Current pressure setting (cmH2O): 8.6-10 Average residual AHI: 7.7 (unknown 5.1) Central apnea: 0.1 Obstructive apnea: 2.1 Hypopnea: 0.4 Average large leak: 23.3 L/min Subjective Missed days of use due to: reports: other (new baby in house) Patient concerns: reports: dry mouth, nose, throat (not too much). denies: aerophagia, mask discomfort, air blowing in eyes, mask leak noise, condensation in mask/hose, nasal congestion, epistaxis Observed to snore while using device: No Current pressure setting perceived as: comfortable On therapy, patient: reports: sleeping better, awakening more refreshed, being more awake and alert during the day, more rested overall. denies: drowsiness while driving Initial [place] Sleepiness Scale score: 8 (in 2018) Current [place] Sleepiness Scale score: 4 (04/04/23) Allergies and Home Medications Known drug allergies: No Drug allergies reviewed: Yes Home medication list reviewed: Yes (no changes) Allergy and home medication list: Allergies No Known Drug Allergies Allergy (Verified 04/03/23 10:00) Review of Systems Review of systems same as previous: Yes (no changes) Physical Exam Vital signs obtained and entered by: LOWELL Sam MA Blood Pressure: 136/82 (LEFT ARM) Cuff size: regular Heart Rate: 78 O2 Saturation: 97 Height: 5 ft 9 in Weight: 199 lb 6.4 oz Body Mass Index: 29.4 BMI Classification: Overweight Impression and Plan 1. Obstructive Sleep Apnea-Hypopnea Syndrome, severe, with poor treatment compliance and fair apnea control with elevated residual AHI. On CPAP therapy, the patient has better sleep quality and is more rested overall. He is still struggling to increase his compliance but he is still determined to improve his use. He does get the mask on 93% of the time, but he will take it off if he gets up to bathroom or other reasons and not put back on. We discussed ways to leave the mask on or replace after he has gotten up during the night and he will try some of those strategies. His residual AHI is mildly elevated but his average large leak is very high. The unknown events are probably caused by the excessive leaking. He feels comfortable at current pressure and no changes are needed toda y. Patient's apnea severity and rationale for treatment to reduce apnea, improve sleep quality and reduce cardiovascular and cerebrovascular events was reviewed. 2. Overweight, unspecified. Currently patients BMI is 29.4. Obesity increases the risk of apnea, CPAP pressure requirements and overall health risks especially cardiovascular and diabetes. Thus patient is advised to lose weight. * Continue auto CPAP pressure at 8.6-10 cmH2O * Notify me if snoring with mask or feeling that the pressure is too much or too little * Attempt to lose weight * Call this office if any problems using CPAP * Return for follow up in 3 months, or sooner if concerns arise Counseling Topics: Spare mask, Weight loss health impact Follow up with Sleep Care in: 3 months Visit Type: In Office Time Spent with Patient (minutes): 20 Provider Statement: I spent 100% of the Face to Face Visit with the patient with greater than 50% spent counseling the patient and coordination of care.
[2023-04-04 15:53] VITALS: BP 136/82; O2SAT 97
== END 2023-04-04 14:53 | disposition home or self-care (01) ==
LOC: SC 14:52
PROVIDERS: ATTEND Nurse Practitioner Family
DX: G47.33 Obstructive sleep apnea (adult) (pediatric) (principal); E66.3 Overweight; Z68.29 Body mass index [BMI] 29.0-29.9, adult
CPT/HCPCS: 99212; 99213

== ENCOUNTER 2024-01-12 11:35 | Outpatient (CLI) | payer OTHER ==
--- NOTE | 2024-01-12 13:54 | XRAY Report ---
PROCEDURE: Knee 1-2V RT INDICATIONS: PAIN IN RIGHT KNEE TECHNIQUE: 2 views of the knee(s) were acquired. COMPARISON: None. FINDINGS: Bones: No fractures or dislocations. No suspicious bony lesions. Tricompartmental joint space lauro rowing with associated osteophytosis. Soft tissues: Moderate knee joint effusion. No suspicious soft tissue calcifications or masses. IMPRESSION: No acute bony abnormality. Moderate knee joint effusion. Mild to moderate tricompartmental osteoarthritis. Kellgren-Rafat scale of osteoarthritis: 2. Reviewed by: Aidan Hutson MD on 01/12/2024 1:53 PM PDT Approved by: Aidan Hutson MD on 01/12/2024 1:53 PM PDT Station ID: [id number]
== END 2024-01-12 14:07 | disposition home or self-care (01) ==
LOC: DI.N 11:35
PROVIDERS: ATTEND Nurse Practitioner
DX: M17.11 Unilateral primary osteoarthritis, right knee (principal)

== ENCOUNTER 2024-01-27 10:33 | Outpatient (CLI) | payer OTHER ==
--- NOTE | 2024-01-27 11:19 | Sleep Patient Instructions ---
Sleep Center Visit Summary - Patient Visit Information Reason for Visit: 5-month follow-up - Patient Instructions Additional Instructions: You were here for follow up of CPAP therapy. You will be continued on CPAP therapy with pressure at 8.6-10 cmH2O. I have written an order for a mask refitting for the nasal cushion mask. Try the mask I fitted to you and see if it will work for you. You should follow up with sleep care in 3 months. You may contact us sooner for any questions or concerns. - Clinic Information Contact: [facility] [address] [place] [address] [email or web address] T: [phone]
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
[2024-01-27 11:32] VITALS: BP 124/93; O2SAT 98
== END 2024-01-27 10:34 | disposition home or self-care (01) ==
LOC: SC 10:33
PROVIDERS: ATTEND Nurse Practitioner Family
DX: G47.33 Obstructive sleep apnea (adult) (pediatric) (principal); E66.3 Overweight; Z68.29 Body mass index [BMI] 29.0-29.9, adult
CPT/HCPCS: 99212; 99213

== ENCOUNTER 2024-03-02 06:50 | Outpatient (CLI) | payer OTHER ==
--- NOTE | 2024-03-02 14:23 | MRI Report ---
PROCEDURE: Knee RT WO INDICATIONS: R KNEE PAIN TECHNIQUE: Noncontrast sagittal PD fast spin echo and T2 fast spin echo with fat saturation, sagittal 3-D gradie nt sequence with fat saturation; coronal T1 spin echo and PD fast spin echo with fat saturation, and axial PD fast spin echo with fat saturation through the knee. COMPARISON: Right knee radiograph dated 01/12/2024. FINDINGS: Image quality: Excellent. Menisci: Horizontal T2 hyperintense signal throughout body and posterior horn of medial meniscus whic h does not extend to the articulating surface. The lateral meniscus is intact. Low-grade partial-thic kness tear involving posterior medial meniscal root ligament is noted. Cruciate ligaments: The anterior and posterior cruciate ligaments appear intact. Medial structures: The medial collateral ligament appears mildly thickened. Visualized portions of t he pes anserinus tendons appear normal. No abnormal bursal fluid. Lateral structures: The lateral collateral ligament is thickened at its femoral insertion with intra substance T2 hyperintense signal. The long and short heads of the biceps femoris tendon appear intact . The popliteus tendon is thickened. Iliotibial band appears normal. Anterior structures: The quadriceps and patellar tendons appear intact. Patellar alignment is flavia l. No femoral trochlear dysplasia or ventral trochlear prominence. No edema in the infrapatellar fa t pad. Bones and cartilage: [id number] tricompartmental osteoarthritis and chondromalacia is seen more notably in patellofemoral compartment and lateral femoral tibial compartment. No fracture or disloca tion. Joint space: There is small knee joint fluid. No Gotti's cyst. Normal appearing synovial plicae ar e incidentally noted. IMPRESSION: 1. Mild to moderate tricompartmental osteoarthritis and chondromalacia most notably in patellofemoral compartment and lateral femoral tibial compartment. No fracture or dislocation. Small joint effusion , no loose bodies. 2. Suggestion of a horizontal tear involving body and posterior horn of medial meniscus which does no t extend to articulating surface. Low-grade partial-thickness tear involving posterior medial menisca l root ligament. The lateral meniscus is intact. 3. The cruciate ligaments are intact. Low-grade MCL sprain. Low-grade proximal LCL sprain/partial thi ckness tear. Popliteus tendinosis. Reviewed by: Hari Boss MD on 03/02/2024 2:21 PM PDT Approved by: Hari Boss MD on 03/02/2024 2:21 PM PDT Station ID: [id number]
== END 2024-03-02 06:51 | disposition home or self-care (01) ==
LOC: DI 06:50
PROVIDERS: ATTEND Nurse Practitioner Family
DX: M17.11 Unilateral primary osteoarthritis, right knee (principal); M11.261 Other chondrocalcinosis, right knee; M25.461 Effusion, right knee; S83.241A Other tear of medial meniscus, current injury, right knee, initial encounter; S83.411A Sprain of medial collateral ligament of right knee, initial encounter; S83.421A Sprain of lateral collateral ligament of right knee, initial encounter; M67.863 Other specified disorders of tendon, right knee